=== PATIENT | male | born 1940 | race Caucasian/White ===

== ENCOUNTER 2022-03-07 10:14 | Inpatient (IN) | payer OTHER ==
[~2022-03-07] VITALS: Ht 170.2 cm; Wt 68.0 kg
--- NOTE | 2022-03-07 10:14 | NUR ---
1011 BIBA ALS TO ER BED 10
[2022-03-07 10:22] VITALS: BP 131/67
[2022-03-07] MEDS: DEXTROSE 10% 1,000 ML IV SCH (10:30)
[2022-03-07] MEDS ORDERED: DEXT 5% /NACL 0.9% 1,000 ML IV ONE (11:15)
[2022-03-07 12:00] LABS: BASOPHILS # (AUTO) 0.1 K/uL (0.00-0.22); BASOPHILS % (AUTO) 0.4 % (0.0-2.0); EOSINOPHILS # (AUTO) 0.2 K/uL (0-0.4); HEMATOCRIT 48.8 % (36-52); HEMOGLOBIN 15.5 g/dL (12.0-18.0); LYMPHOCYTES # (AUTO) 1.2 K/uL (2.0-11.5); LYMPHOCYTES % (AUTO) 6.9 % (20.5-51.1); MEAN CORPUSCULAR HEMOGLOBIN 25 pg (27-31); MEAN CORPUSCULAR HGB CONC 32 g/dL (33-37); MEAN CORPUSCULAR VOLUME 77.5 fL (80-94); MONOCYTES # (AUTO) 0.5 K/uL (0.8-1.0); NEUTROPHILS # (AUTO) 15.5 K/uL (1.8-7.7); NEUTROPHILS % (AUTO) 88.7 % (42.2-75.2); PLATELET COUNT (AUTO) 555 K/uL (140-450); RED BLOOD CELL COUNT(AUTO) 6.29 MIL/uL (4.20-6.10); RED CELL DISTRIBUTION WIDTH 20.7 % (11.6-13.7); WHITE BLOOD COUNT (AUTO) 17.5 K/uL (4.8-10.8)
--- NOTE | 2022-03-07 12:48 | NUR ---
PATIENT PROVIDED WITH URINAL, UNABLE TO PROVIDE URINE AT THIS TIME. DR. WATERS MADE AWARE
--- NOTE | 2022-03-07 12:54 | NUR ---
SWITCHBOARD MANAGER AT BEDSIDE
--- NOTE | 2022-03-07 14:15 | NUR ---
PATIENTS BP 190/80 DR. ROSAS MADE AWARE
--- NOTE | 2022-03-07 14:25 | NUR ---
82/M BIBA FROM HOME. PER EMS PATIENTS FAMILY CALLED 911 STATING PATIENT WAS FOUND LYING IN BED ALTERED AND NOT AT BASELINE, FAMILY STATING BS WHEN 911 CALLED WAS 42, REPORTS THEY ATTEMPTED TO GIVE PATIENT SODA BUT WAS NOT TOLERATING. EMS STATES BS 62 ON SCENE. PER EMS 1ML GLUCAGON GIVEN AND D50 IV GIVEN. BS ON ARRIVAL 94, PATIENT ABLE TO ANSWER TO NAME. UPON ARRIVAL PATIENT PLACED IN GOWN AND BEDSIDE CYBER SYSTEMS ADMINISTRATOR.
--- NOTE | 2022-03-07 14:35 | NUR ---
PER DR. ROSAS, DEXTROSE/NS FLUIDS TO BE STOPPED AT THIS TIME
[2022-03-07] MEDS ORDERED: LOSA100T51 PO (15:04)
[2022-03-07] MEDS ORDERED: ATOR10TA51 PO (15:04)
[2022-03-07] MEDS ORDERED: METF-1139 PO (15:04)
[2022-03-07] MEDS ORDERED: INSU100S22 SUBQ (15:04)
[2022-03-07] MEDS ORDERED: DEXTROSE 50% 50 ML SYR IVP ONE (16:50)
[2022-03-07 16:52] LABS: ANION GAP 10.4 (8-16); CARBON DIOXIDE 27.2 mmol/L (21-32); CHLORIDE 103 mmol/L (98-107); CREATININE 2.2 mg/dL (0.6-1.3); GLUCOSE 202 mg/dL (74-106); POTASSIUM 4.6 mmol/L (3.5-5.1); SODIUM SERUM 136 mmol/L (136-145); UREA NITROGEN, BLOOD 36 mg/dL (7-18)
--- NOTE | 2022-03-07 16:55 | NUR ---
PATIENT HAD BOWEL MOVEMENT, WITH THE ASSISTANCE OF ANNE RN, PATIENT CLEANED UP, PLACED IN NEW DIAPER AND CLEAN GOWN. SHEETS CHANGED, PATIENT REMAINS ON BEDSIDE DISTRIBUTOR ADVERTISING MATERIAL, PROVIDED WITH WARM BLANKETS FOR COMFORT. ALL NEEDS MET AT THIS TIME.
[2022-03-07 16:59] LABS: ALBUMIN 3.2 g/dL (3.4-5.0); ASPARTATE AMINOTRANSFERASE 18 U/L (15-37); LIPASE 369 U/L (73-393); TOTAL BILIRUBIN 0.6 mg/dL (0.0-1.0)
--- NOTE | 2022-03-07 17:00 | NUR ---
PATIENTS BP 196/83, DR. ROSAS AWARE. NO NEW ORDERS AT THIS TIME.
--- NOTE | 2022-03-07 17:00 | NUR ---
PATIENT RESTLESS, ATTEMPTING TO PULL OFF MONITOR CORDS. PULLED IV OUT, BS CHECKED AND AT 75 AT THIS TIME, DR. ROSAS MADE AWARE, VERBAL ORDER FOR D50 TO BE GIVEN IVP.
--- NOTE | 2022-03-07 17:18 | NUR ---
ADAN SWAB COLLECTED AND WALKED TO LAB
--- NOTE | 2022-03-07 17:45 | NUR ---
ATTEMPTED TO PO CHALLENGE PATIENT WITH WATER, PATIENT NOT TOLERATING.
[2022-03-07] MEDS ORDERED: ACETAMINOPHEN 325 MG TAB PO PRN (18:35)
[2022-03-07] MEDS ORDERED: ONDANSETRON 4 MG/2 ML VIAL IVP PRN (18:35)
[2022-03-07] MEDS ORDERED: CLONIDINE HYDROCHLORIDE 0.1 MG TAB PO PRN (18:45)
--- NOTE | 2022-03-07 18:45 | NUR ---
PAGED RIGO TO ASK TO CHANGE PO MEDS TO IV, AWAITING CALL BACK AT THIS TIME.
--- NOTE | 2022-03-07 19:29 | NUR ---
Pt report given to JONNY CORREA. Transfer of care at this time.
[2022-03-07] MEDS: BLOOD GLUCOSE MONITORING 1 DEV DEV FS SCH (20:11)
--- NOTE | 2022-03-07 20:58 | NUR ---
REPORT TO BELINDA FULLER WITH FULL RETURN VERBAL UNDERSTANDING. PT GOING TO 121B
--- NOTE | 2022-03-07 20:59 | NUR ---
Patient will be admitted to care of [facility]. Admited to TELEMETRY. Will go to room 121b Belongings list completed. Report to BELINDA FULLER.
--- NOTE | 2022-03-07 21:10 | NUR ---
PT WAS ADMITTED TO [facility] DEPARTMENT FROM ER WITH DIAGNOSIS OF HYPOGLYCEMIA. PT IS AOX2, FAROESE SPEAKING AND CONFUSED. 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 PT IS ON ROOM AIR SATING AT 100%. PT KEEPS REMOVING EVERYTHING. PT HAS IV ON LEFT AC GAUGE 20 SALINE LOCK. PT SKIN IS INTACT. NO S/S OF RESPIRATORY DISTRESS NOTED AND NO COMPLAIN OF PAIN AT THIS TIME. ALL SAFETY MEASURES IMPLEMENTED. BED IN LOW POSITION, BED WHEELS ON LOCK AND CALL LIGHT WITHIN REACH.
[2022-03-07] MEDS: LOSARTAN 50 MG TAB PO SCH (21:50)
--- NOTE | 2022-03-07 22:14 | NUR ---
NOTIFIED DR. MORA FOR PT'S DIET. WILL WAIT FOR MD'S REPLY.
[2022-03-08] VITALS: BP 155/87
--- NOTE | 2022-03-08 00:29 | NUR ---
NOTIFIED DR. MORA THAT PT REFUSED IV FLUID AND BLOOD GLUCOSE CHECK. HEALTH EDUCATION WAS GIVEN BUT PT STILL REFUSING IT AND CONFUSED. ALL SAFETY MEASURES IMPLEMENTED. BED WHEELS ON LOCK, BED IN LOW POSITION AND CALL LIGHT WITHIN REACH.
--- NOTE | 2022-03-08 01:25 | NUR ---
NOTIFIED DR. MORA THAT THE PT IS RESTLESS AND AGITATED. DR. MORA ORDER ATIVAN 0.5MG IV Q6H PRN. ORDER WAS MADE AND CARRIED OUT.
[2022-03-08] MEDS: LORazepam 2 MG/ML VIAL IVP PRN (01:39)
--- NOTE | 2022-03-08 02:27 | NUR ---
PT REMOVES EVERYTHING AND REFUSED TELE BOX MONITORING. EDUCATED THE PT BUT PT IS CONFUSED.
--- NOTE | 2022-03-08 03:27 | NUR ---
INFORMED DR. MORA THAT PT REMOVED HIS IV AND REFUSED TO HAVE A NEW ONE. EXPLAIN TO THE PT THE IMPORTANCE OF IT BUT STILL REFUSING IT.
[2022-03-08 04:00] VITALS: BP 158/98
[2022-03-08] MEDS: BLOOD GLUCOSE MONITORING 1 DEV DEV FS SCH ×6 (04:00→20:08)
--- NOTE | 2022-03-08 07:15 | NUR ---
RECEIVED REPORT FROM NIGHTSDEFT NURSE LIANG FOR CONTINUITY OF CARE. PT IS STABLE.
--- NOTE | 2022-03-08 07:32 | NUR ---
PT IS STABLE. ENDORSED PT TO MORNING SHIFT NURSE FOR CONTINUITY OF CARE.
[2022-03-08 08:00] VITALS: BP 185/113
[2022-03-08] MEDS: DEXTROSE 50% 50 ML SYR IVP PRN (08:25)
[2022-03-08] MEDS: LOSARTAN 50 MG TAB PO SCH ×2 (09:00→20:39)
--- NOTE | 2022-03-08 09:02 | NUR ---
PATIENT HAS BEEN SCREENED AND CATEGORIZED MODERATE NUTRITION RISK. PATIENT WILL BE SEEN WITHIN 3-5 DAYS OF ADMISSION. REVIEWED BY JUAN F RANDLE RD
[2022-03-08] MEDS ORDERED: TAMSULOSIN 0.4 MG CAP PO SCH (09:30)
[2022-03-08 09:53] LABS: HEMOGLOBIN 16.1 g/dL (12.0-18.0); MEAN CORPUSCULAR HEMOGLOBIN 24 pg (27-31); MEAN CORPUSCULAR HGB CONC 32 g/dL (33-37); MEAN CORPUSCULAR VOLUME 77.2 fL (80-94); PLATELET COUNT (AUTO) 579 K/uL (140-450); RED CELL DISTRIBUTION WIDTH 20.9 % (11.6-13.7)
[2022-03-08] MEDS: hydrALAZINE 20 MG/ML VIAL IVP PRN (10:08)
[2022-03-08 10:15] LABS: ALBUMIN 3.9 g/dL (3.4-5.0); ANION GAP 15.4 (8-16); ASPARTATE AMINOTRANSFERASE 18 U/L (15-37); CARBON DIOXIDE 24.7 mmol/L (21-32); CHLORIDE 103 mmol/L (98-107); CREATININE 1.7 mg/dL (0.6-1.3); GLUCOSE 390 mg/dL (74-106); MAGNESIUM 1.7 mg/dL (1.8-2.4); POTASSIUM 4.1 mmol/L (3.5-5.1); SODIUM SERUM 139 mmol/L (136-145); TOTAL BILIRUBIN 0.9 mg/dL (0.0-1.0); UREA NITROGEN, BLOOD 29 mg/dL (7-18)
[2022-03-08] MEDS: DEXTROSE 10% 1,000 ML IV SCH (11:20)
[2022-03-08 12:00] VITALS: BP 163/78
[2022-03-08] MEDS ORDERED: FINA5TAB1 PO (12:50)
[2022-03-08] MEDS ORDERED: QUET50TA PO (12:50)
[2022-03-08] MEDS ORDERED: TAMS0.4C96 PO (12:50)
[2022-03-08 12:55] LABS: APPEARANCE,URINE SL CLOUDY (CLEAR); BILIRUBIN,URINE NEGATIVE (NEGATIVE); BLOOD, URINE 2+ (NEGATIVE); COLOR,URINE AMBER (YELLOW); LEUKOCYTE ESTERASE ,URINE 3+ (NEGATIVE); NITRITE, URINE POSITIVE (NEGATIVE); UGLUCOSE 3+ (NEGATIVE)
[2022-03-08 13:11] LABS: RBC,URINE 20-50 /HPF (0-5); WBC,URINE 20-60 /HPF (0-5)
[2022-03-08 13:12] LABS: OTHER CASTS, URINE RBC CASTS 1+ /LPF (None Seen)
--- NOTE | 2022-03-08 14:00 | NUR ---
DISCHARGE PLANNING PATIENT IS AN 82 YEAR OLD MALE ADMITTED TO [facility]/ED ON 03/07/2022 DUE TO LOW BLOOD SUGAR. SW MEET WITH PATIENT AND HIS GRANDSON AT BEDSIDE TO DISCUSS AND GATHER HIS COLLATERAL INFORMATION. PATIENT WAS AWAKE BUT IS NOT ALERT AND ABLE TO PROVIDE HIS INFORMATION THEREFORE HIS GRANDSON WAS ABLE TO ASSIST AND CALL HIS MOTHER MINOO CROCKETT OVER THE PHONE TO PROVIDE PATIENT'S INFORMATION PER PATIENT'S DAUGHTER PATIENT LIVES AT HOME WITH HIS SITAR CARMEL CROCKETT WHO IS ALSO HIS CAREGIVER. PATIENT HAS NO A.D. AND BOTH SISTER ALTERNATE THE CARE FOR PATIENT. PATIENT HAS A PCP DIO MORALES WHO HE LAST SAW ABOUT 3 WEEKS AGO AND HAS A FOLLOW UP APPOINTMENT NEXT WEEK AFTER HE IS DISCHARGE FROM [facility]. PER PATIENT'S DAUGTHER HE HAS GOOD SUPPORT SYSTEM AND CARE FROM THE FAMILY. HOWEVER THEY DO NEED ASSISTANCE WITH PATIENT'S CARE AND NEEDS. SW PROVIDED IHSS/DPSS INFORMATION AND RESOURCES. PER PATIENT'S DAUGTHER PATIENT HAS NO ISSUES WITH HIS MEDICATIONS AND HE GETS HIS MEDICATIONS FROM THE [facility] IN [facility]. IN [facility]. PER PATIENT'S DAUGTHER. SHE IS HIS EMERGENCY CONTACT AND MEDICAL DECISION MAKER. PATIENT ALSO HAS A WHEELCHAIR AND A HOSPITAL BED HIS ONLY DME AT HOME PER PATIENT'S DAUGTHER SHE WANTS PATIENT TO RETURN HOME WHEN HE IS READY FOR DISCHARGE AND SHE WILL BE PICKING HIM UP AND TAKE HIM HOME FROM [facility]. PER PATIENT'S DAUGTHER SHE IS OPEN FOR MD. RECOMMENDATIONS. JADE/SAMARIA WILL FOLLOW UP NEEDED.
[2022-03-08 15:29] LABS: LYMPHOCYTES % (MANUAL) 8 % (20-46); MONOCYTES % (MANUAL) 4 % (5-12)
[2022-03-08 16:00] VITALS: BP 147/85
[2022-03-08] MEDS ORDERED: MAG SULF 2000 MG/WATER PREMIX 50 ML IV SCH (16:10)
--- NOTE | 2022-03-08 19:30 | NUR ---
RECEIVED REPORT FROM DAY SHIFT JONNY SPEARS FOR CONTINUITY OF CARE. PT IS AAOX1 FAROESE SPEAKER. PT IS ON RA SATING 95%. PT NOT IN ANY RESPIRATORY DISTRESS. PT IS ON SOFT WRIST RESTRAINTS. PT HAS LEFT HAND 24 GAUGE RUNNING D10 AT 60 CC/HR. FAMILY BY BEDSIDE. PT NOT IN ANY DISTRESS. WILL CONTINUE TO MONITOR THE PT.
[2022-03-08 20:00] VITALS: BP 134/77
--- NOTE | 2022-03-08 20:40 | NUR ---
SCHEDULE MEDICATION GIVEN. NO ADVERSE REACTION NOTED. WILL CONTINUE TO MONITOR THE PT.
[2022-03-09] VITALS: BP 131/70
[2022-03-09] MEDS: DEXTROSE 10% 1,000 ML IV SCH ×2 (00:07→20:40)
[2022-03-09] MEDS: BLOOD GLUCOSE MONITORING 1 DEV DEV FS SCH ×6 (00:11→20:11)
--- NOTE | 2022-03-09 00:11 | NUR ---
BLOOD GLUCOSE CHECKED. PT BLOOD GLUCOSE IS 111 NO COVERAGE NEEDED. PT NOT IN ANY DISTRESS. BREATHING EVEN AND UNLABORED. WILL CONTINUE TO MONITOR THE PT.
[2022-03-09 04:00] VITALS: BP 154/75
[2022-03-09] MEDS: INSULIN LISPRO SLIDING SCALE 100 UNITS/ML VIAL SUBQ PRN ×3 (04:02→20:12)
--- NOTE | 2022-03-09 04:05 | NUR ---
BLOOD GLUCOSE CHECKED. BLOOD GLUCOSE IS 171. 2 UNITS OF HUMALOG GIVEN PER SLIDING SCALE. PT IS NOT IN ANY DISTRESS. NO COMPLAINS. DENIES PAIN. IVF RUNNING PER MD ORDER. SAFETY PRECAUTIONS TAKEN. WILL CONTINUE TO MONITOR THE PT.
[2022-03-09 05:58] LABS: BASOPHILS # (AUTO) 0.1 K/uL (0.00-0.22); BASOPHILS % (AUTO) 0.9 % (0.0-2.0); EOSINOPHILS # (AUTO) 0.4 K/uL (0-0.4); EOSINOPHILS % (AUTO) 4.2 % (0.0-4.0); HEMATOCRIT 47.5 % (36-52); HEMOGLOBIN 15.6 g/dL (12.0-18.0); LYMPHOCYTES # (AUTO) 1.5 K/uL (2.0-11.5); LYMPHOCYTES % (AUTO) 14.9 % (20.5-51.1); MEAN CORPUSCULAR HEMOGLOBIN 25 pg (27-31); MEAN CORPUSCULAR HGB CONC 33 g/dL (33-37); MEAN CORPUSCULAR VOLUME 76.2 fL (80-94); MONOCYTES # (AUTO) 0.5 K/uL (0.8-1.0); NEUTROPHILS # (AUTO) 7.7 K/uL (1.8-7.7); PLATELET COUNT (AUTO) 508 K/uL (140-450); RED BLOOD CELL COUNT(AUTO) 6.23 MIL/uL (4.20-6.10); RED CELL DISTRIBUTION WIDTH 20.5 % (11.6-13.7); WHITE BLOOD COUNT (AUTO) 10.2 K/uL (4.8-10.8)
[2022-03-09 06:45] LABS: ALBUMIN 3.4 g/dL (3.4-5.0); ANION GAP 14.6 (8-16); ASPARTATE AMINOTRANSFERASE 19 U/L (15-37); CARBON DIOXIDE 22.9 mmol/L (21-32); CHLORIDE 104 mmol/L (98-107); CREATININE 1.5 mg/dL (0.6-1.3); GLUCOSE 161 mg/dL (74-106); MAGNESIUM 2.1 mg/dL (1.8-2.4); POTASSIUM 3.5 mmol/L (3.5-5.1); SODIUM SERUM 138 mmol/L (136-145); TOTAL BILIRUBIN 0.6 mg/dL (0.0-1.0); UREA NITROGEN, BLOOD 22 mg/dL (7-18)
--- NOTE | 2022-03-09 07:25 | NUR ---
ENDORSED PT TO DAY SHIFT RN FOR CONTINUITY OF CARE. PT IS STABLE.
[2022-03-09 08:00] VITALS: BP 158/70
[2022-03-09] MEDS: TAMSULOSIN 0.4 MG CAP PO SCH ×2 (09:34→21:00)
[2022-03-09] MEDS: LOSARTAN 50 MG TAB PO SCH ×2 (09:34→21:00)
[2022-03-09] MEDS: FINASTERIDE 5 MG TAB PO SCH (09:35)
[2022-03-09 12:00] VITALS: BP 160/76
[2022-03-09 16:00] VITALS: BP 152/53
--- NOTE | 2022-03-09 16:44 | NUR ---
PATIENT BLOOD GLUCOSE LEVEL 64. PATIENT ASYMPTOMATIC. 8 OZ JUICE GIVEN. WILL RECHECK BLOOD GLUCOSE IN 30 MIN. Maury MAYORGA RN.
--- NOTE | 2022-03-09 19:30 | NUR ---
RECEIVED REPORT FROM DAY SHIFT RN FOR CONTINUITY OF CARE. PT IS AAOX1 STATELESS SPEAKER. PT IS ON RA SATING 96%. PT NOT IN ANY RESPIRATORY DISTRESS. PT IS ON SOFT WRIST RESTRAINTS. PT HAS LEFT HAND 24 GAUGE RUNNING D10 AT 60 CC/HR. WILL CONTINUE TO MONITOR THE PT.
[2022-03-09 20:00] VITALS: BP 156/62
--- NOTE | 2022-03-09 20:35 | NUR ---
PT TOOK SEROQUEL AND COZAAR. HELD IT IN HIS MOUTH AND THEN SPIT IT OUT LATER. PT BECAME COMBATIVE AND MANAGE TO PULL OUT IV. PT REFUSED TO BE CONTACTED TRYING TO PUNCH, AND KICK.
[2022-03-09] MEDS: QUEtiapine FUMARATE 25 MG TAB PO SCH (21:00)
[2022-03-09] MEDS: ATORVASTATIN 20 MG TAB PO SCH (21:00)
[2022-03-09] MEDS: LORazepam 2 MG/ML VIAL IVP PRN (22:43)
[2022-03-10] VITALS: BP 133/69
[2022-03-10] MEDS: DEXTROSE 50% 50 ML SYR IVP PRN (00:25)
[2022-03-10] MEDS: BLOOD GLUCOSE MONITORING 1 DEV DEV FS SCH ×6 (00:29→20:08)
--- NOTE | 2022-03-10 00:58 | NUR ---
PT IS SLEEPING IN BED COMFORTABLY. PT IS NOT IN ANY DISTRESS. BREATHING EVEN AND UNLABORED. SAFETY PRECAUTIONS TAKEN. WILL CONTINUE TO MONITOR THE PT.
[2022-03-10 04:00] VITALS: BP 155/95
--- NOTE | 2022-03-10 04:19 | NUR ---
BLOOD GLUCOSE CHECKED. GLUCOSE LEVEL AT 125. NO COVERAGE NEEDED. PT ASLEEP. BREATHING EVEN AND UNLABORED. SAFETY PRECAUTIONS TAKEN. WILL CONTINUE TO MONITOR THE PT.
[2022-03-10 07:18] LABS: BASOPHILS # (AUTO) 0.2 K/uL (0.00-0.22); BASOPHILS % (AUTO) 1.3 % (0.0-2.0); EOSINOPHILS # (AUTO) 0.5 K/uL (0-0.4); EOSINOPHILS % (AUTO) 4.5 % (0.0-4.0); HEMATOCRIT 49.5 % (36-52); LYMPHOCYTES # (AUTO) 1.7 K/uL (2.0-11.5); MEAN CORPUSCULAR HEMOGLOBIN 25 pg (27-31); MEAN CORPUSCULAR HGB CONC 32 g/dL (33-37); MEAN CORPUSCULAR VOLUME 76.9 fL (80-94); MONOCYTES # (AUTO) 0.5 K/uL (0.8-1.0); MONOCYTES % (AUTO) 4.6 % (1.7-9.3); NEUTROPHILS # (AUTO) 8.8 K/uL (1.8-7.7); PLATELET COUNT (AUTO) 573 K/uL (140-450); RED BLOOD CELL COUNT(AUTO) 6.44 MIL/uL (4.20-6.10); RED CELL DISTRIBUTION WIDTH 20.8 % (11.6-13.7); WHITE BLOOD COUNT (AUTO) 11.7 K/uL (4.8-10.8)
--- NOTE | 2022-03-10 07:25 | NUR ---
ENDORSED PT TO DAY SHIFT RN FOR CONTINUITY OF CARE. PT IS STABLE.
[2022-03-10 07:30] LABS: ANION GAP 11.9 (8-16); ASPARTATE AMINOTRANSFERASE 17 U/L (15-37); CHLORIDE 103 mmol/L (98-107); CREATININE 1.5 mg/dL (0.6-1.3); GLUCOSE 128 mg/dL (74-106); MAGNESIUM 2.1 mg/dL (1.8-2.4); POTASSIUM 3.9 mmol/L (3.5-5.1); SODIUM SERUM 135 mmol/L (136-145); TOTAL BILIRUBIN 0.4 mg/dL (0.0-1.0); UREA NITROGEN, BLOOD 18 mg/dL (7-18)
[2022-03-10 08:00] VITALS: BP 164/84
[2022-03-10 08:08] LABS: ALBUMIN 3.5 g/dL (3.4-5.0)
[2022-03-10 08:37] LABS: LYMPHOCYTES % (AUTO) 14.2 % (20.5-51.1); NEUTROPHILS % (AUTO) 75.4 % (42.2-75.2)
[2022-03-10] MEDS: INSULIN LISPRO SLIDING SCALE 100 UNITS/ML VIAL SUBQ PRN ×3 (08:43→16:12)
[2022-03-10] MEDS: FINASTERIDE 5 MG TAB PO SCH (08:49)
[2022-03-10] MEDS: LOSARTAN 50 MG TAB PO SCH ×2 (08:49→20:07)
[2022-03-10] MEDS: TAMSULOSIN 0.4 MG CAP PO SCH ×2 (08:49→20:07)
[2022-03-10 12:00] VITALS: BP 179/88
[2022-03-10] MEDS: MEROPENEM 1,000 MG in NACL 0.9% 100 ML IV SCH ×2 (12:28→20:38)
[2022-03-10] MEDS: DEXTROSE 10% 1,000 ML IV SCH (12:57)
[2022-03-10] MEDS: hydrALAZINE 20 MG/ML VIAL IVP PRN ×2 (12:58→18:02)
[2022-03-10 16:00] VITALS: BP 176/94
--- NOTE | 2022-03-10 19:30 | NUR ---
RECEIVED REPORT FROM DAY SHIFT RN MEEK FOR CONTINUITY OF CARE. PT IS AAOX1 DIVEHI SPEAKER. PT IS ON RA WITH NO DISTRESS. PT HAS IV ON RIGHT FOREARM 22 GAUGE RUNNING D10 AT 60 CC/HR. PT IS NOT ON RESTRAINTS TODAY. PT IS CALM BUT STILL CONFUSED. BED AT THE LOWEST POSITION. HEAD OF THE BED RAISED. SAFETY MEASURES TAKEN. WILL CONTINUE TO MONITOR THE PT.
[2022-03-10 20:00] VITALS: BP 153/67
[2022-03-10] MEDS: QUEtiapine FUMARATE 25 MG TAB PO SCH (20:07)
[2022-03-10] MEDS: ATORVASTATIN 20 MG TAB PO SCH (20:07)
--- NOTE | 2022-03-10 20:10 | NUR ---
SCHEDULE MEDICATION GIVEN. NO ADVERSE REACTION NOTED. WILL CONTINUE TO MONITOR THE PT.
[2022-03-11] VITALS: BP 159/70
[2022-03-11] MEDS: BLOOD GLUCOSE MONITORING 1 DEV DEV FS SCH ×6 (00:12→20:30)
[2022-03-11] MEDS: INSULIN LISPRO SLIDING SCALE 100 UNITS/ML VIAL SUBQ PRN ×3 (00:14→16:58)
--- NOTE | 2022-03-11 00:18 | NUR ---
PT HAS BLOOD GLUCOSE OF 171. 2 UNITS OF HUMALOG GIVEN PER SLIDING SCALE.
[2022-03-11] MEDS: LORazepam 2 MG/ML VIAL IVP PRN ×2 (02:17→21:27)
--- NOTE | 2022-03-11 02:20 | NUR ---
PT WAS FOUND TO BE VERY CONFUSED AND TRYING TO GET OUT OF BED. PT WAS YELLING FOR HIS AND TRYING TO GET OUT OF BED TO GO TO THE BATHROOM. TRIED TO REORIENTATE PT BUT BECAME MORE AGITATED. PT WAS UNCOOPERATIVE. DID NOT WANT TO BE REPOSITION EVEN THOUGH HE WAS HALF WAY DOWN THE BED WITH HIS LEG STICKING OUT. HE WOULD START SHOVING HANDS AND GETTING READY TO HIT. ATIVAN WAS GIVEN. WILL MONITOR PT MORE FREQUENT.
[2022-03-11 04:00] VITALS: BP 155/95
--- NOTE | 2022-03-11 04:00 | NUR ---
VITAL SIGNS TAKEN AND STABLE. PT IS SLEEPING COMFORTABLY IN BED. PT NOT IN ANY ACUTE DISTRESS. BED AT THE LOWEST POSITION. HEAD OF THE BED RAISED. WILL CONTINUE TO MONITOR THE PT.
[2022-03-11] MEDS: DEXTROSE 10% 1,000 ML IV SCH ×2 (06:13→22:40)
--- NOTE | 2022-03-11 07:09 | NUR ---
ENDORSED PT TO DAY SHIFT RN FOR CONTINUITY OF CARE. PT IS STABLE.
[2022-03-11 07:47] LABS: BASOPHILS # (AUTO) 0.1 K/uL (0.00-0.22); BASOPHILS % (AUTO) 1.3 % (0.0-2.0); EOSINOPHILS # (AUTO) 0.4 K/uL (0-0.4); EOSINOPHILS % (AUTO) 3.9 % (0.0-4.0); HEMATOCRIT 47.9 % (36-52); HEMOGLOBIN 15.5 g/dL (12.0-18.0); LYMPHOCYTES # (AUTO) 1.3 K/uL (2.0-11.5); LYMPHOCYTES % (AUTO) 12.2 % (20.5-51.1); MEAN CORPUSCULAR HEMOGLOBIN 25 pg (27-31); MEAN CORPUSCULAR HGB CONC 32 g/dL (33-37); MONOCYTES # (AUTO) 0.6 K/uL (0.8-1.0); MONOCYTES % (AUTO) 5.7 % (1.7-9.3); NEUTROPHILS % (AUTO) 76.9 % (42.2-75.2); PLATELET COUNT (AUTO) 502 K/uL (140-450); RED BLOOD CELL COUNT(AUTO) 6.21 MIL/uL (4.20-6.10); RED CELL DISTRIBUTION WIDTH 20.6 % (11.6-13.7); WHITE BLOOD COUNT (AUTO) 10.4 K/uL (4.8-10.8)
[2022-03-11 08:00] VITALS: BP 145/73
[2022-03-11 08:19] LABS: ALBUMIN 2.9 g/dL (3.4-5.0); ANION GAP 13.8 (8-16); ASPARTATE AMINOTRANSFERASE 16 U/L (15-37); CARBON DIOXIDE 23.9 mmol/L (21-32); CHLORIDE 100 mmol/L (98-107); CREATININE 1.6 mg/dL (0.6-1.3); GLUCOSE 139 mg/dL (74-106); MAGNESIUM 1.9 mg/dL (1.8-2.4); POTASSIUM 3.7 mmol/L (3.5-5.1); SODIUM SERUM 134 mmol/L (136-145); TOTAL BILIRUBIN 0.6 mg/dL (0.0-1.0); UREA NITROGEN, BLOOD 17 mg/dL (7-18)
[2022-03-11] MEDS: MEROPENEM 1,000 MG in NACL 0.9% 100 ML IV SCH ×2 (08:57→20:41)
[2022-03-11] MEDS: FINASTERIDE 5 MG TAB PO SCH (09:06)
[2022-03-11] MEDS: TAMSULOSIN 0.4 MG CAP PO SCH ×3 (09:06→21:00)
[2022-03-11] MEDS: LOSARTAN 50 MG TAB PO SCH ×3 (09:06→21:00)
[2022-03-11 12:00] VITALS: BP 167/90
[2022-03-11 16:00] VITALS: BP 96/57
[2022-03-11 20:00] VITALS: BP 143/66
[2022-03-11] MEDS: QUEtiapine FUMARATE 25 MG TAB PO SCH ×2 (20:42→21:00)
[2022-03-11] MEDS: ATORVASTATIN 20 MG TAB PO SCH ×2 (20:42→21:00)
--- NOTE | 2022-03-11 21:27 | NUR ---
PATIENT IS AGITATED TRYING TO PULL OUT HIS IV, KICKING THE STAFF. PRN MEDICATION GIVEN.
--- NOTE | 2022-03-11 21:30 | NUR ---
PATIENT REFUSED ALL 2100 MEDICATIONS.
[2022-03-12] VITALS: BP 132/69
[2022-03-12] MEDS: BLOOD GLUCOSE MONITORING 1 DEV DEV FS SCH ×6 (00:24→20:44)
[2022-03-12 04:00] VITALS: BP 156/67
[2022-03-12 06:45] LABS: BASOPHILS # (AUTO) 0.3 K/uL (0.00-0.22); BASOPHILS % (AUTO) 2.6 % (0.0-2.0); EOSINOPHILS # (AUTO) 0.5 K/uL (0-0.4); EOSINOPHILS % (AUTO) 4.3 % (0.0-4.0); HEMATOCRIT 48.9 % (36-52); HEMOGLOBIN 15.7 g/dL (12.0-18.0); LYMPHOCYTES # (AUTO) 1.7 K/uL (2.0-11.5); LYMPHOCYTES % (AUTO) 14.7 % (20.5-51.1); MEAN CORPUSCULAR HEMOGLOBIN 25 pg (27-31); MEAN CORPUSCULAR HGB CONC 32 g/dL (33-37); MEAN CORPUSCULAR VOLUME 78.1 fL (80-94); MONOCYTES # (AUTO) 0.9 K/uL (0.8-1.0); MONOCYTES % (AUTO) 7.9 % (1.7-9.3); NEUTROPHILS # (AUTO) 8.4 K/uL (1.8-7.7); NEUTROPHILS % (AUTO) 70.5 % (42.2-75.2); PLATELET COUNT (AUTO) 454 K/uL (140-450); RED BLOOD CELL COUNT(AUTO) 6.27 MIL/uL (4.20-6.10); RED CELL DISTRIBUTION WIDTH 20.8 % (11.6-13.7); WHITE BLOOD COUNT (AUTO) 11.9 K/uL (4.8-10.8)
--- NOTE | 2022-03-12 07:30 | NUR ---
RECEIVED REPORT FROM NIGHTSHIFT NURSE. PT SLEEPING WITH EYES CLOSED. IN NO ACUTE DISTRESS. ON RA. BILATERAL WRIST RESTRAINTS WITH GOOD C/S/M. L HAND #22 WITH D10 @ 60 ML/HR. NEEDS ALL MET AT THIS TIME. ALL SAFETY MEASURES IN PLACE. CONTACT PRECAUTION FOR ESBL OF URINE.
[2022-03-12 07:50] LABS: ALBUMIN 2.8 g/dL (3.4-5.0); ANION GAP 11.5 (8-16); ASPARTATE AMINOTRANSFERASE 18 U/L (15-37); CARBON DIOXIDE 24.7 mmol/L (21-32); CHLORIDE 102 mmol/L (98-107); CREATININE 1.9 mg/dL (0.6-1.3); GLUCOSE 126 mg/dL (74-106); MAGNESIUM 2.2 mg/dL (1.8-2.4); POTASSIUM 4.2 mmol/L (3.5-5.1); SODIUM SERUM 134 mmol/L (136-145); TOTAL BILIRUBIN 0.6 mg/dL (0.0-1.0); UREA NITROGEN, BLOOD 18 mg/dL (7-18)
[2022-03-12 08:00] VITALS: BP 119/47
[2022-03-12] MEDS: hydrALAZINE 20 MG/ML VIAL IVP PRN (08:54)
--- NOTE | 2022-03-12 08:54 | NUR ---
PRODUCT REPRESENTATIVE REPORTED ELEVATED BP. PRN HYDRALZINE GIVEN.
[2022-03-12] MEDS: LOSARTAN 50 MG TAB PO SCH ×2 (09:04→20:33)
[2022-03-12] MEDS: FINASTERIDE 5 MG TAB PO SCH (09:04)
[2022-03-12] MEDS: TAMSULOSIN 0.4 MG CAP PO SCH ×2 (09:04→20:33)
[2022-03-12] MEDS: MEROPENEM 1,000 MG in NACL 0.9% 100 ML IV SCH ×2 (09:07→20:36)
--- NOTE | 2022-03-12 09:10 | NUR ---
ALL DUE MEDS CRUSHED AND GIVEN WITH APPLE SAUCE. HOB ELEVATED. NO DISTRESS NOTED. TRAY AT BEDSIDE AND DITCH WORKER ASSISTING IN FEEDING. BILATERAL WRIST RESTRAINTS WITH GOOD C/S/M. NEEDS ALL MET AT THIS TIME. ALL SAFETY MEASURES IN PLACE.
[2022-03-12] MEDS: INSULIN LISPRO SLIDING SCALE 100 UNITS/ML VIAL SUBQ PRN ×3 (11:19→20:46)
[2022-03-12 12:00] VITALS: BP 126/53
--- NOTE | 2022-03-12 14:10 | NUR ---
PT CHANGED AND REPOSITIONED. PT TOLERATED WELL. PT AWAKE AND ALERT. FAMILY AT BEDSIDE. OFFERED ORAL FLUIDS, HOWEVER, PT REFUSED. ALL NEEDS MET. ALL SAFETY MEASURES IN PLACE.
[2022-03-12] MEDS: DEXTROSE 10% 1,000 ML IV SCH (14:22)
--- NOTE | 2022-03-12 15:00 | NUR ---
PT IS MORE AWAKE, ALERT, AND TALKING. PT ABLE TO STATE NAME AND . FAMILY AT BEDSIDE TRANSLATING. FAMILY AT BEDSIDE PROVIDING ORAL DRINKS AND PROVIDED FOOD TO PT. PT ABLE TO INTAKE MORE FOOD. NO SOB NOTED. DENIES PAIN. RESTRAINTS RELEASED. PT NO LONGER PULLING ON IV. FAMILY MEMBER AT BEDSIDE. D10 IVF INFUSING ON L HAND #22. NEEDS ALL MET. ALL SAFETY MEASURES IN PLACE.
--- NOTE | 2022-03-12 15:23 | NUR ---
03/12/22 RD INITIAL ASSESSMENT COMPLETED PLEASE REFER TO NUTRITION ASSESSMENT UNDER CARE ACTIVITY FOR ESTIMATED NUTRITIONAL NEEDS. 1. CONTINUE NA2GM, MECHANICAL SOFT DIET TOLERATED 2. RECOMMEND ADDING CCHO 60 GM TO DIET 3. RECOMMEND EXCHANGING GLUCERNA TID FOR ENSURE BID FOR BETTER BG CONTROL - GLUCERNA TID PROVIDES 660 KCAL AND [address] 4. RD OFFERED NUTRITION EDUCATION WITH HANDOUTS ON CARB COUNTING FOR DM AND A HEART HEALTHY DIET 5. RD TO FOLLOW-UP 7 DAYS, LOW RISK REVIEWED BY JUAN F RANDLE RD
[2022-03-12 16:00] VITALS: BP 125/61
--- NOTE | 2022-03-12 18:28 | NUR ---
PT STILL AWAKE AND ALERT. FAMILY AT BEDSIDE. PT IN NO DISTRESS. PT NOT PULLING ON IV. RESTRAINTS ARE OFF. NEEDS ALL MET. ALL SAFETY MEASURES IN PLACE.
--- NOTE | 2022-03-12 19:25 | NUR ---
REPORT GIVEN TO NIGHTSHIFT NURSE, CURTIS FOR CONTINUITY OF CARE. HOURLY ROUNDS CONDUCTED THROUGHOUT MY SHIFT.
--- NOTE | 2022-03-12 19:47 | NUR ---
PATIENT IS AWAKE ALERT RESTING COMFORTABLY IN BED ON ROOM AIR. NO DISTRESS. NO COMPLAINTS OF PAIN. IVF OF D10 INFUSING 60 ML/HR ON THE LEFT HAND. AT BEDSIDE. CALL LIGHT WITHIN REACH. SAFETY MEASURES IN PLACE.
[2022-03-12 20:00] VITALS: BP 145/77
[2022-03-12] MEDS: QUEtiapine FUMARATE 25 MG TAB PO SCH (20:32)
[2022-03-12] MEDS: ATORVASTATIN 20 MG TAB PO SCH (20:33)
[2022-03-13] VITALS: BP 137/83
[2022-03-13] MEDS: BLOOD GLUCOSE MONITORING 1 DEV DEV FS SCH ×7 (00:45→23:55)
[2022-03-13] MEDS: INSULIN LISPRO SLIDING SCALE 100 UNITS/ML VIAL SUBQ PRN ×5 (00:46→21:12)
--- NOTE | 2022-03-13 01:11 | NUR ---
PATIENT PULLED OUT HIS IV , PT IS HARD STICK UNABLE TO INSERT. DR BERNSTEIN MADE AWARE SAID OKAY THANK YOU.
[2022-03-13 04:00] VITALS: BP 132/80
--- NOTE | 2022-03-13 07:15 | NUR ---
ASSUMED CONTINUITY OF CARE. INITIAL ASSESSMENT DONE. RE-ORIENTED TO EVENTS AND SURROUNDINGS. NON-COMPLIANT TO SAFETY. ON BILATERAL SOFT WRIST RESTRAINT. NO IV ACCESS. FALL PRECAUTION APPLIED. CALL LIGHT WITHIN REACH.
--- NOTE | 2022-03-13 07:23 | NUR ---
BEDSIDE REPORT GIVEN TO DAY SHIFT NURSE JB FOR CONTINUITY OF CARE. PATIENT STABLE.
[2022-03-13 07:29] LABS: BASOPHILS # (AUTO) 0.2 K/uL (0.00-0.22); BASOPHILS % (AUTO) 2.2 % (0.0-2.0); EOSINOPHILS # (AUTO) 0.4 K/uL (0-0.4); EOSINOPHILS % (AUTO) 4.2 % (0.0-4.0); HEMATOCRIT 42.6 % (36-52); HEMOGLOBIN 14.5 g/dL (12.0-18.0); LYMPHOCYTES # (AUTO) 1.6 K/uL (2.0-11.5); LYMPHOCYTES % (AUTO) 15.4 % (20.5-51.1); MEAN CORPUSCULAR HEMOGLOBIN 25 pg (27-31); MEAN CORPUSCULAR HGB CONC 34 g/dL (33-37); MEAN CORPUSCULAR VOLUME 74.6 fL (80-94); MONOCYTES # (AUTO) 0.6 K/uL (0.8-1.0); MONOCYTES % (AUTO) 6.2 % (1.7-9.3); NEUTROPHILS # (AUTO) 7.4 K/uL (1.8-7.7); PLATELET COUNT (AUTO) 474 K/uL (140-450); RED BLOOD CELL COUNT(AUTO) 5.71 MIL/uL (4.20-6.10); RED CELL DISTRIBUTION WIDTH 20.7 % (11.6-13.7); WHITE BLOOD COUNT (AUTO) 10.2 K/uL (4.8-10.8)
[2022-03-13 07:42] LABS: ANION GAP 13.3 (8-16); ASPARTATE AMINOTRANSFERASE 13 U/L (15-37); CHLORIDE 102 mmol/L (98-107); CREATININE 1.9 mg/dL (0.6-1.3); GLUCOSE 142 mg/dL (74-106); POTASSIUM 4.3 mmol/L (3.5-5.1); SODIUM SERUM 137 mmol/L (136-145); TOTAL BILIRUBIN 0.4 mg/dL (0.0-1.0); UREA NITROGEN, BLOOD 26 mg/dL (7-18)
[2022-03-13 08:00] VITALS: BP 122/64
[2022-03-13] MEDS: DEXTROSE 10% 1,000 ML IV SCH ×2 (08:00→23:29)
--- NOTE | 2022-03-13 08:00 | NUR ---
PLAN OF CARE WAS DISCUSSED TO DIRECTOR OUTCOMES NOW.
[2022-03-13] MEDS: MEROPENEM 1,000 MG in NACL 0.9% 100 ML IV SCH ×2 (09:00→23:28)
[2022-03-13] MEDS: FINASTERIDE 5 MG TAB PO SCH (09:24)
[2022-03-13] MEDS: TAMSULOSIN 0.4 MG CAP PO SCH ×2 (09:24→20:55)
[2022-03-13] MEDS: LOSARTAN 50 MG TAB PO SCH ×2 (09:24→20:55)
--- NOTE | 2022-03-13 10:15 | NUR ---
PT. CARLITA TOURE CAME IN AND STAY ON BEDSIDE. PT. CALM AND QUIET. RELEASED ON RESTRAINT AT THIS TIME. ASKED JULITA TO CALL NURSE STATION IF HE PLANS TO LEAVE AT THE ROOM TO RE-APPLY RESTRAINT.
[2022-03-13 12:00] VITALS: BP 147/72
--- NOTE | 2022-03-13 15:30 | NUR ---
FAMILY MEMBER -JEREMY CAME AND WATCHED PT. AT BEDSIDE. REQUESTED TO RELEASE RESTRAINT FOR NOW. EDUCATED FAMILY MEMBER ABOUT APPLICATION OF PT. RESTRAINT.
[2022-03-13 16:00] VITALS: BP 145/72
--- NOTE | 2022-03-13 16:30 | NUR ---
DC PLANNING: PATIENT HAS AN ORDER FOR HOME HEALTH FOR IV ABX FAXED TO [facility] SPOKE WITH DARLING STATED IF [facility] CAN PROVIDE NURSING OK TO ACCEPT [facility]. CALLED [facility] SPOKE WITH ELIZABETH STATED [facility] CAN PROVIDE NURSING TO ADMINISTER IV ABX. FAXED THE REQUEST TO [facility] AND [facility]. CM TO FOLLOW.
--- NOTE | 2022-03-13 19:10 | NUR ---
BEDSIDE REPORT GIVEN TO FREDERIC MCLEAN FOR CONTINUITY OF CARE. FAMILY MEMBER ON BEDSIDE. IN STABLE CONDITION. ALSO ENDORSED ABOUT PT. MIDLINE INSERTION BY PICC LINE NURSE ARLETH.
--- NOTE | 2022-03-13 19:50 | NUR ---
OPENING ASSUMED CARE OF PT, DX ALOC, HYPOGLYCEMIA, PT IS ARABIC SPEAKER IS THIS RN, FAMILY AT BEDSIDE, PT IS ON BILATERAL UPPER EXTREMITIES RESTRAINS, PT IS AAOX2, EASILY REORIENTED TO TIME AND EVENT, DENIES CP, SOB, PAIN OR DISCOMFORT, PT ASSESSED, PLS SEE ADULT SYSTEM ASSESSMENT, INSTRUCTED TO CALL FOR ASSISTANCE, NO DISTRESS NOTED, BED LOCKED AT LOWEST POSITION, PT DOES NOT HAVE AN IV ACCESS, PICC RN TO START A LINE TONIGHT, WILL CONTINUE TO MONITOR.
[2022-03-13 20:00] VITALS: BP 166/73
[2022-03-13] MEDS: QUEtiapine FUMARATE 25 MG TAB PO SCH (20:56)
[2022-03-13] MEDS: ATORVASTATIN 20 MG TAB PO SCH (20:56)
[2022-03-14] VITALS: BP 140/75
[2022-03-14] MEDS: BLOOD GLUCOSE MONITORING 1 DEV DEV FS SCH ×4 (04:00→16:00)
[2022-03-14 04:50] VITALS: BP 119/71
[2022-03-14] MEDS: INSULIN LISPRO SLIDING SCALE 100 UNITS/ML VIAL SUBQ PRN ×4 (05:02→16:02)
--- NOTE | 2022-03-14 07:05 | NUR ---
ASSUMED CONTINUITY OF CARE. IVF INFUSING WELL. INITIAL ASSESSMENT DONE. RE-ORIENTED TO EVENTS AND SURROUNDINGS. FALL PRECAUTIONS APPLIED. CALL LIGHT WITHIN REACH.
--- NOTE | 2022-03-14 07:18 | NUR ---
CLOSING NO CHANGE ON STATUS, NO DISTRESS NOTED, REPORT GIVEN TO JONNY MUHAMMAD PER SBAR AT BEDSIDE.
[2022-03-14 08:00] VITALS: BP 153/88
[2022-03-14] MEDS: LOSARTAN 50 MG TAB PO SCH (08:53)
[2022-03-14] MEDS: FINASTERIDE 5 MG TAB PO SCH (08:54)
[2022-03-14] MEDS: TAMSULOSIN 0.4 MG CAP PO SCH (08:54)
[2022-03-14] MEDS: MEROPENEM 1,000 MG in NACL 0.9% 100 ML IV SCH (09:00)
[2022-03-14 12:00] VITALS: BP 140/80
[2022-03-14 16:00] VITALS: BP 156/83
[2022-03-14] MEDS ORDERED: ERTA1VIA2 IJ (17:27)
--- NOTE | 2022-03-14 17:40 | NUR ---
PATIENT DC TO HOME VIA WHEELCHAIR, ACCOMPANIED BY FAMILY MEMBER JULITA. IN STABLE CONDITION. INFORMED CN
--- NOTE | 2022-03-14 18:11 | NUR ---
PAGED DR. DONG REGARDING PT. HOME MEDS PRESCRIPTION ERTAPENEM DOSING. INFORMED DR. DONG TO CALL [facility] AT EXT [phone]. INFORMED CHARGE NURSE BOOKER MCLEAN.
--- NOTE | 2022-03-20 16:37 | NUR ---
pt dc'd home with [facility] on 03/14/22 at 1740
== END 2022-03-14 17:40 | disposition home health service (06) | DRG 682 ==
LOC: MED 10:14 → MTU 18:37
PROVIDERS: ADMIT Internal Medicine; ATTEND Internal Medicine
PROC: 4A00X4Z Measurement of Central Nervous Electrical Activity, External Approach (ICD-10-PCS; principal; 2022-03-11)
PROC: 05HY33Z Insertion of Infusion Device into Upper Vein, Percutaneous Approach (ICD-10-PCS; 2022-03-13)
PROC: B54NZZA Ultrasonography of Left Upper Extremity Veins, Guidance (ICD-10-PCS; 2022-03-13)
DX: N17.9 Acute kidney failure, unspecified (principal); G93.41 Metabolic encephalopathy; N39.0 Urinary tract infection, site not specified; E11.649 Type 2 diabetes mellitus with hypoglycemia without coma; E78.00 Pure hypercholesterolemia, unspecified; E78.5 Hyperlipidemia, unspecified; J45.909 Unspecified asthma, uncomplicated; I25.10 Atherosclerotic heart disease of native coronary artery without angina pectoris; D72.829 Elevated white blood cell count, unspecified; Z20.822 Contact with and (suspected) exposure to COVID-19; N40.0 Benign prostatic hyperplasia without lower urinary tract symptoms; I12.9 Hypertensive chronic kidney disease with stage 1 through stage 4 chronic kidney disease, or unspecified chronic kidney disease; E11.22 Type 2 diabetes mellitus with diabetic chronic kidney disease; N18.9 Chronic kidney disease, unspecified; Z79.4 Long term (current) use of insulin; Z79.899 Other long term (current) drug therapy
CPT/HCPCS: 36415; 70450; 71045; 80053; 81001; 82140; 82948; 83690; 83735; 85025; 87081; 87086; 93005; 95816; 96361; 96374; 99285; J0360; J0696; J2060; J2185; J3475; J7060; Q0092